=== PATIENT | male | born 1960 | race Caucasian/White ===

== ENCOUNTER 2017-01-22 10:29 | Emergency (ER) | payer OTHER, MEDICAID ==
[~2017-01-22] VITALS: Ht 182.9 cm; Wt 104.3 kg
[2017-01-22 10:30] VITALS: BP 115/83; PULSE 66; RESP 16; TEMP 97.6; O2SAT 97
[2017-01-22] MEDS ORDERED: PENICILLIN G BENZATHINE 1.2 MMU/2 ML SYR IM ONE (10:45)
[2017-01-22 12:00] VITALS: BP 115/68; PULSE 64; RESP 16; TEMP 97.6; O2SAT 97
== END 2017-01-22 12:00 | disposition home or self-care (01) ==
LOC: SED 10:29
DX: A53.9 Syphilis, unspecified (principal)
CPT/HCPCS: 96372; 99283; J0561

== ENCOUNTER 2019-12-20 00:03 | Emergency (ER) | payer MEDICAID, OTHER ==
[~2019-12-20] VITALS: Ht 182.9 cm; Wt 95.3 kg
[2019-12-20 00:10] VITALS: BP_SYST 157
--- NOTE | 2019-12-20 00:20 | NUR ---
Patient triaged and placed in waiting room. VSS and patient appears in no acute distress at this time. Accompanied by SO, awaiting available bed, and MD notified of need for MSE.
--- NOTE | 2019-12-20 00:44 | NUR ---
Patient to ER bed 7 to gown for evaluation. Side rails up.
[2019-12-20 00:45] VITALS: BP_SYST 157
--- NOTE | 2019-12-20 00:45 | NUR ---
Pt came to the ED for throat itching and closing which began around 1700 yesterday, Reports that it progressed from the throat to posterior back. Reports he gets allergy shots every week for the past year and a half. Reports they have been increasing the dose. Last dose was last monday. Denies chest pain, numbness, weakness or tingling. Denies n/v/d or fever. No other complaints/injuries noted. Will cont. to monitor.
--- NOTE | 2019-12-20 00:47 | NUR ---
ER at bedside examining patient.
[2019-12-20] MEDS ORDERED: NACL 0.9% 1,000 ML IV ONE (01:37)
--- NOTE | 2019-12-20 01:42 | NUR ---
Patient given written and verbal discharge instructions and verbalizes understanding. ER MD Dr. Rehman discussed with patient the results and treatment provided. Patient in stable condition. ID arm band removed. IV catheter removed intact and dressing applied, no active bleeding. Rx of predisone given. Patient educated on pain management and to follow up with PMD. Pain Scale 0/10. Opportunity for questions provided and answered. Medication side effect fact sheet provided.
[2019-12-20] MEDS ORDERED: methylPREDNISolone SOD SUCC/PF 62.5 MG/ML VIAL IVP ONE (01:45)
[2019-12-20] MEDS ORDERED: EPINEPHrine 1 MG/ML AMP IM ONE (01:45)
[2019-12-20] MEDS ORDERED: DIPHENHYDRAMINE INJ 50 MG/ML VIAL IVP ONE (01:45)
[2019-12-20] MEDS ORDERED: FAMOTIDINE PF 20 MG/2 ML VIAL IVP ONE (01:45)
== END 2019-12-20 00:45 | disposition home or self-care (01) ==
LOC: SED 00:03
DX: T78.40XA Allergy, unspecified, initial encounter (principal); I10 Essential (primary) hypertension; R09.89 Other specified symptoms and signs involving the circulatory and respiratory systems; R06.00 Dyspnea, unspecified; R13.10 Dysphagia, unspecified; Z88.1 Allergy status to other antibiotic agents; X58.XXXA Exposure to other specified factors, initial encounter
CPT/HCPCS: 96372; 96374; 96375; 99283; J0171; J1200; J2930; J3490; J7030

== ENCOUNTER 2020-04-09 17:48 | Emergency (ER) | payer OTHER ==
[~2020-04-09] VITALS: Ht 182.9 cm; Wt 99.8 kg
[2020-04-09 17:53] VITALS: BP_SYST 128
[2020-04-09] MEDS ORDERED: METOCLOPRAMIDE HCL 10 MG/2 ML VIAL IVP ONE (18:00)
[2020-04-09] MEDS ORDERED: GLUCAGON,HUMAN RECOMBINANT 1 MG VIAL IVP ONE (18:00)
[2020-04-09] MEDS ORDERED: NACL 0.9% 1,000 ML IV ONE (18:15)
[2020-04-09] MEDS ORDERED: FAMOTIDINE PF 20 MG/2 ML VIAL IVP ONE (18:45)
[2020-04-09 19:57] VITALS: BP_SYST 113
== END 2020-04-09 19:57 | disposition home or self-care (01) ==
LOC: SED 17:48
DX: T18.8XXA Foreign body in other parts of alimentary tract, initial encounter (principal); Z88.1 Allergy status to other antibiotic agents; X58.XXXA Exposure to other specified factors, initial encounter; Y93.89 Activity, other specified; Y92.89 Other specified places as the place of occurrence of the external cause; Y99.8 Other external cause status
CPT/HCPCS: 70490; 93005; 96374; 96375; 99284; J1610; J2765; J3490; J7030